=== PATIENT | male | born 1960 | race Caucasian/White ===

== ENCOUNTER 2019-12-23 13:20 | Emergency (ER) | payer BC ==
[~2019-12-23] VITALS: Ht 182.9 cm; Wt 93.2 kg
[~2019-12-23 13:20] MED LIST: CHOL2000 PO
--- NOTE | 2019-12-23 14:32 | RAD ---
4 views left knee HISTORY: Pain after lifting heavy object AP lateral oblique and sunrise views There is a high riding patella. There is a moderate effusion. There is edema seen anterior to the patellar tendon. The visualized osseous structures otherwise appear grossly intact. IMPRESSION: There is consistent with torn patellar tendon and hemarthrosis. No fracture seen. Clinical correlation is suggested. Electronically signed by: Vito Coburn III, MD (12/23/2019 2:29 PM) [id number]
[2019-12-23 14:53] VITALS: BP 147/89
[2019-12-23] MEDS ORDERED: oxyCODONE/APAP 5/325 1 TAB TABLET PO ONE (15:00)
[2019-12-23] MEDS ORDERED: OXYC1TAB15 PO (15:16)
--- NOTE | 2019-12-23 15:16 | PHYS DOC ---
Past Medical History Past Medical History: High Cholesterol, Hypertension Past Surgical History: Cholecystectomy Additional Past Surgical Histo: shoulder Smoking Status: Never Smoker Alcohol Use: Heavy Drug Use: None General Adult EDM: Chief Complaint: KNEE INJURY HPI: HPI: Patient is a 59 year old male who presents with L knee pain. Patient was moving a refrigerator and his leg came out from under him and he heard a pop. He continues to have pain. He hasn't walked but can straighten the leg out. Denies any other injuries. Review of Systems: Review of Systems: General: Denies fever, chills, sweats, fatigue Eyes: Denies drainage, blurred vision, eye redness HENT: Denies rhinorrhea, sore throat, earache Respiratory: Denies cough, shortness of breath, wheezing Cardiac: Denies edema, palpitations, chest pain GI: Denies abdominal pain, Nausea, vomiting MSK: Denies back pain, neck pain Skin: Denies rash, jaundice Neuro: Denies headache, dizziness Psychiatric: Denies SI/HI Heart Score: Risk Factors: Risk Factors: DM, Current or recent (<one month) smoker, HTN, HLP, family history of CAD, obesity. Risk Scores: Score 0 - 3: 2.5% MACE over next 6 weeks - Discharge Home Score 4 - 6: 20.3% MACE over next 6 weeks - Admit for Clinical Observation Score 7 - 10: 72.7% MACE over next 6 weeks - Early Invasive Strategies Current Medications: Current Medications Medications (Trade) Dose Ordered Sig/Elaina Start Time Stop Time Status Last Admin Dose Admin Oxycodone/ Acetaminophen (Percocet 5/325) 1 tab 1X ONCE 12/23/19 15:00 12/23/19 15:01 DC Allergies: Allergies: Allergies Coded Allergies Type Severity Reaction Last Updated Verified No Known Drug Allergies 11/25/14 No Physical Exam: PE: General: Awake, alert, NAD. Well Nourished, well hydrated. Cooperative HEENT: Atraumatic, EOMI, PERRL, airway patent, moist oral mucosa Neck: Supple, trachea midline Respiratory: CTA bilaterally, normal effort, no wheezing/crackles CV: RRR, no murmur, cap refill <2 GI: Soft, nondistended, nontender, no masses MSK: L knee: swelling, high riding patella Skin: Warm, dry, intact Neuro: A&O x3, speech NL, sensory and motor grossly intact, no focal deficits Psych: Normal affect, normal mood, not suicidal or homicidal Current Patient Data: Vital Signs: Vital Signs Date Time Temp Pulse Resp B/P (MAP) Pulse Ox O2 Delivery O2 Flow Rate FiO2 12/23/19 13:20 98.1 88 14 158/96 (116) 93 Room Air 98.1 EKG: EKG: [] Radiology/Procedures: Radiology/Procedures: [] Course & Med Decision Making: Course & Med Decision Making Pertinent Labs and Imaging studies reviewed. (See chart for details) Patient presents with knee pain after hearing a sudden pop. He has a high riding patella and swelling concerning for patella tendon rupture. X-ray is suggestive of a patella tendon rupture. I discussed the case with the on-call orthopedic surgeon Dr. Corral. He will be placed in a knee immobilizer and will see them in clinic on Wednesday to have surgical fixation done this week. Patient's test results and vitals while in the ED were fully reviewed and discussed with the patient. Patient is stable and at this time does not need admission to the hospital. We have discussed strict return precautions and the importance of following up with their Primary Care Physician. Patient stated understanding and was given an opportunity to ask any questions. Patient is in agreement with plan. Katie Disclaimer: Katie Disclaimer: This electronic medical record was generated, in whole or in part, using a voice recognition dictation system. Departure Departure Impression: Primary Impression: Patellar tendon rupture Disposition: HOME, SELF-CARE Condition: GOOD Referrals: EDVIN JOHNSON MD (PCP) SRAVANI CORRAL MD, JOHN N MD Patient Instructions: Patellar Tendon Tear/Disruption with Rehab-[facility] Scripts Oxycodone/Apap 5-325 (PERCOCET 5-325 MG TABLET ) 1 Each Tablet 1 TAB PO PRN BID PRN for PAIN MDD 2 Tablet(s) for 5 Days, #10 TAB 0 Refills Prov: SUZIE MINER MD 12/23/19 Justicifation of Admission Dx: Justifications for Admission: Justification of Admission Dx: No SUZIE MINER MD Dec 23, 2019 15:16
[2019-12-26] MEDS ORDERED: LISI10TA2 PO (09:48)
[2019-12-26] MEDS ORDERED: CYAN-25 PO (09:48)
[2019-12-26] MEDS ORDERED: HYDR12.575 PO (09:48)
[2019-12-26] MEDS ORDERED: LUTE1CAP5 PO (09:48)
[2019-12-26] MEDS ORDERED: NAPR220T70 PO (09:48)
[2019-12-26] MEDS ORDERED: GLUC1TAB26 PO (09:48)
[2019-12-26] MEDS ORDERED: ATOR10TA PO (09:48)
[2019-12-26] MEDS ORDERED: OXYC1TAB19 PO (17:43)
== END 2019-12-23 15:55 | disposition home or self-care (01) ==
LOC: ER 13:20
DX: S76.112A Strain of left quadriceps muscle, fascia and tendon, initial encounter (principal); I10 Essential (primary) hypertension; E78.00 Pure hypercholesterolemia, unspecified; X50.0XXA Overexertion from strenuous movement or load, initial encounter; Y93.89 Activity, other specified; Y92.89 Other specified places as the place of occurrence of the external cause; Y99.8 Other external cause status
CPT/HCPCS: 29505; 73564; 99283; 99284; U0003-CS

== ENCOUNTER 2019-12-26 13:31 | Day surgery (SDC) | payer BC ==
[~2019-12-26 13:31] MED LIST changes: +ATOR10TA PO; +CYAN-25 PO; +GLUC1TAB26 PO; +HYDR12.575 PO; +LISI10TA2 PO; +LUTE1CAP5 PO; +NAPR220T70 PO; +OXYC1TAB15 PO
[2019-12-26] MEDS ORDERED: IV RINGERS,LACTATED 1000ML 1,000 ML IV SCH ×2 (14:15→17:34)
[2019-12-26 14:35] LABS: BASO % 1 % (0-3); CALCIUM 8.9 mg/dL (8.5-10.1); EOS # 0.1 x10^3/uL (0.0-0.7); EOS % 2 % (0-3); HEMATOCRIT 46.6 % (39.0-53.0); HEMOGLOBIN 16.3 g/dL (13.0-17.5); LYMPH # 1.5 x10^3/uL (1.0-4.8); LYMPH % 20 % (24-48); MEAN CORPUSCULAR HEMOGLOBIN 32 pg (25-35); MEAN CORPUSCULAR HGB CONC 35 g/dL (31-37); MEAN CORPUSCULAR VOLUME 91 fL (79-100); MONO # 0.6 x10^3/uL (0.0-1.1); MONO % 7 % (0-9); NEUT # 5.4 x10^3/uL (1.8-7.7); NEUT % 71 % (31-73); PLATELET COUNT 230 x10^3/uL (140-400); POTASSIUM 3.9 mmol/L (3.5-5.1); RED BLOOD COUNT 5.13 x10^6/uL (4.30-5.70); RED CELL DISTRIBUTION WIDTH 13.4 % (11.5-14.5); WHITE BLOOD COUNT 7.7 x10^3/uL (4.0-11.0)
[2019-12-26] MEDS ORDERED: ONDANSETRON PF 4 MG/2 ML VIAL. ONE (15:21)
[2019-12-26] MEDS ORDERED: DEXAMETHASONE SOD PHOS 4 MG/ML VIAL ONE (15:21)
[2019-12-26] MEDS ORDERED: SEVOFLURANE 61 TO 120 MINUTES. IH ONE (15:21)
[2019-12-26] MEDS ORDERED: LIDOCAINE 2% PF 5 ML VIAL. ONE (15:21)
[2019-12-26] MEDS ORDERED: PROPOFOL 10 MG/ML (20ML) VIAL. IV ONE (15:21)
[2019-12-26] MEDS ORDERED: HYDROmorphone 2 MG/ML VIAL ONE ×2 (16:08→18:31)
[2019-12-26] MEDS ORDERED: KETOROLAC 30 MG/ML VIAL. ONE (17:00)
[2019-12-26] MEDS ORDERED: MEPERIDINE PF 25 MG/ML VIAL. IV ONE (17:30)
[2019-12-26] MEDS: LABETALOL 20 MG/4 ML DISP.SYRIN. IVP ONE ×2 (17:30→17:42)
[2019-12-26] MEDS ORDERED: fentaNYL PF VIAL 100 MCG/2 ML VIAL ONE ×2 (17:30→17:47)
[2019-12-26] MEDS: fentaNYL PF VIAL 100 MCG/2 ML VIAL IV PRN ×4 (17:40→18:03)
[2019-12-26] MEDS ORDERED: OXYC1TAB19 PO (17:43)
[2019-12-26] MEDS ORDERED: fentaNYL PF VIAL 100 MCG/2 ML VIAL IV PRN (17:45)
[2019-12-26] MEDS ORDERED: HYDROmorphone 2 MG/ML VIAL IV PRN (17:45)
[2019-12-26] MEDS ORDERED: ONDANSETRON PF 4 MG/2 ML VIAL. IV PRN (17:45)
[2019-12-26] MEDS ORDERED: PROCHLORPERAZINE 10 MG/2 ML VIAL. IV PRN (17:45)
[2019-12-26] MEDS ORDERED: LIDOCAINE 1% PF 2 ML VIAL. ID PRN (17:45)
--- NOTE | 2019-12-26 17:47 | DISCH ---
DISCHARGE INSTRUCTIONS Condition on Discharge Condition on Discharge: Stable Activity After Discharge Activity Instructions for Disc: Other, see below (Knee locked in extension in a hinged brace) Lifting Instructions after Dis: No heavy lifting Weight Bearing Status after Di: As tolerated (With crutch support but always with knee locked in full extension in hinged brace) Diet after Discharge Diet after Discharge: Regular Diet Texture: Regular Wound Incision Care Wound/Incision Care: Ice to area for comfort, Keep wound elevated, Change dressing (May remove dressing in 5 days, apply light dressing as necessary) Contacting the DRAtul after DC Call your doctor for: Concerns you may have Follow-Up Follow up with: Dr. Corral in 2 weeks SRAVANI CORRAL MD Dec 26, 2019 17:47
[2019-12-26] MEDS: LABETALOL 20 MG/4 ML DISP.SYRIN. IVP PRN ×3 (17:52→18:18)
[2019-12-26] MEDS ORDERED: oxyCODONE/APAP 7.5/325 1 TAB TABLET PO ONE (18:00)
[2019-12-26] MEDS ORDERED: MORPHINE SULFATE 2 MG/ML VIAL. ONE (18:01)
[2019-12-26] MEDS: MORPHINE SULFATE 2 MG/ML VIAL. IV PRN ×2 (18:03→18:13)
[2019-12-26] MEDS ORDERED: hydrALAZINE 20 MG/ML VIAL. ONE (18:15)
[2019-12-26] MEDS ORDERED: hydrALAZINE 20 MG/ML VIAL. IVP ONE (18:30)
[2019-12-26 18:50] VITALS: BP 165/72
--- NOTE | 2019-12-30 00:13 | PDOC4 ---
Operative Note Operative Note Date of surgery: 12/26/2019 Preoperative diagnosis: Right patella tendon rupture Postoperative diagnosis: Same Operative procedure: Right patella tendon repair Surgeon: Ellis Medical Superintendent: Skip davila Anesthesia: General Estimated blood loss: 25 cc Complications: None Operative indications: Please see my orthopedic clinic note for detailed operative indications and note we did cover potential complications including continued pain nonhealing infection nerve or blood vessel damage medical or other anesthetic complications among others all his questions were answered he wants to proceed with surgical evaluation and treatment. Operative text: Patient was identified procedure verified patient placed in the supine position on the operating table. After adequate amounts of general anesthesia were administered the right lower extremity was prepped and draped in standard sterile fashion with a thigh tourniquet. After timeout was performed patient procedure identified and verified right lower extremity was exsanguinated by elevation tourniquet inflated to 300 mmHg and a midline incision was made and a complete tear of the patellar tendon with superior migration of the patella was noted. The rupture appeared to be mainly from the distal pole of the patella then extending into the tissue and eventually into the retinaculum. The distal pole the patella was debrided back to good viable bleeding bone. A total of 2 double loaded 2.9 juggernaut anchors were placed in the superior aspect of the tibial tubercle medially and laterally and noted excellent purchase. These were woven through the patellar tendon and passed through a total of 3 drill holes in the patella with the strands matched up for in the central hole and 2 in the medial and lateral holes. Sutures were placed underneath the tendon on the superior aspect of the patella to avoid any quadriceps tendon compromise and they were tied to achieve excellent apposition of the tendon to the distal pole and reduction of the previous patella so. The retinaculum was repaired with a running #5 FiberWire suture which resulted in excellent apposition of the remaining tissue. And a watertight joint repair. Thorough irrigation carried out normal saline solution subcutaneous closure with buried Vicryl suture skin closure was accomplished using subcuticular Monocryl. Sterile dressings were applied he was placed in a hinged brace locked in extension toes were noted to be warm pink following deflation of the tourniquet patient was returned to recovery room stable condition having tolerated procedure well. Skip davila was present for the procedure and assisted in patient positioning prepping draping retraction and closure SRAVANI GUTHRIE MD Dec 30, 2019 00:13
== END 2019-12-26 19:02 | disposition home or self-care (01) ==
LOC: SURG 13:31
PROVIDERS: ATTEND Orthopaedic Surgery
DX: S76.111A Strain of right quadriceps muscle, fascia and tendon, initial encounter (principal); I10 Essential (primary) hypertension; Z87.891 Personal history of nicotine dependence; Z90.49 Acquired absence of other specified parts of digestive tract; Z72.89 Other problems related to lifestyle; X58.XXXA Exposure to other specified factors, initial encounter; Y93.89 Activity, other specified; Y92.89 Other specified places as the place of occurrence of the external cause; Y99.8 Other external cause status
CPT/HCPCS: 20999; 36415; 80048; 85025; A7015; C1713; J0360; J1100; J1170; J1885; J2270; J2405; J2704; J3010; J0690

== ENCOUNTER → 2021-01-27 | Outpatient (CLI) | payer OTHER ==
[~2021-01-27] MED LIST changes: +LISI10TA16 PO; -LISI10TA2 PO; +OXYC1TAB19 PO
--- NOTE | 2021-01-27 08:58 | KCIC ---
EXAM: CT CORONARY CALCIUM SCORING. HISTORY: Coronary risk factors. Calcium scoring is requested. Smoking history, family history of natalya nary disease, hyperlipidemia, hypertension COMPARISON: None. FINDINGS: Limited noncontrast CT of the chest was performed for coronary calcium scoring. Refer to e worksheets for full detail. *One or more of the following individualized dose reduction techniques were utilized for this examination: 1. Automated exposure control. 2. Adjustment of the mA and/or kV according to patient size. 3. Use of iterative reconstruction technique. Coronary calcium scoring is as follows: LMA: 0. LAD: 9.1. LCX: 0. RCA: 18.0. PDA: 0. Total: 27.2. This places the patient at the 0th percentile in age- and sex-matched subjects. The included portions of the chest reveal the following. Bone windows reveal no suspicious lesions. I mages of the upper abdomen reveal no acute abnormality. There are no pathologically enlarged mediastinal lymph nodes. There is no pleural or pericardial effu nazario. The heart is not enlarged. An uncalcified nodule in the left lower lobe on image 20 measures 3.5 mm and is likely benign. A calc ified granuloma is noted more superiorly IMPRESSION: 1. Coronary calcium score 27.2. 2. A <4 mm nodule in the left lower lobe is most likely benign at this small size and requires no fur ther follow-up in the absence of strong risk factors. Electronically signed by: Alina Fisher MD (01/27/2021 8:56 AM) [id number]
== END ==
LOC: KCIC CT 08:13
PROVIDERS: ATTEND Family Medicine
DX: Z13.6 Encounter for screening for cardiovascular disorders (principal); R91.1 Solitary pulmonary nodule; E78.5 Hyperlipidemia, unspecified; Z87.891 Personal history of nicotine dependence
CPT/HCPCS: 75571